=== PATIENT | male | born 1955 | race Caucasian/White ===

== ENCOUNTER 2019-04-04 12:17 | Emergency (ER) | payer OTHER ==
[~2019-04-04] VITALS: Ht 193 cm; Wt 140.6 kg
[~2019-04-04 12:17] MED LIST: IBUP200T76 PO
[2019-04-04 14:46] VITALS: BP 145/94
== END 2019-04-04 16:36 | disposition home or self-care (01) ==
LOC: ER 12:22
DX: S46.001A Unspecified injury of muscle(s) and tendon(s) of the rotator cuff of right shoulder, initial encounter (principal); G89.29 Other chronic pain; M54.9 Dorsalgia, unspecified; J45.909 Unspecified asthma, uncomplicated; K21.9 Gastro-esophageal reflux disease without esophagitis; Z79.1 Long term (current) use of non-steroidal anti-inflammatories (NSAID); W18.39XA Other fall on same level, initial encounter; Y93.89 Activity, other specified; Y92.89 Other specified places as the place of occurrence of the external cause; Y99.8 Other external cause status
CPT/HCPCS: 73030

== ENCOUNTER 2021-09-28 06:08 | Emergency (ER) | payer OTHER ==
[~2021-09-28] VITALS: Ht 193 cm; Wt 147.4 kg
[2021-09-28] MEDS ORDERED: KETOROLAC TROMETH 60MG/2ML VIAL IM ONE (08:15)
[2021-09-28 09:32] VITALS: BP 153/90
[2021-09-28] MEDS ORDERED: HYDR-4902 PO (10:02)
[2021-09-28] MEDS ORDERED: CYCL-837 PO (10:02)
[2021-09-28] MEDS ORDERED: NAP500T PO (10:02)
== END 2021-09-28 10:11 | disposition home or self-care (01) ==
LOC: ER 06:08
DX: G89.29 Other chronic pain (principal); M54.50 Low back pain, unspecified; M47.816 Spondylosis without myelopathy or radiculopathy, lumbar region; J45.909 Unspecified asthma, uncomplicated; K21.9 Gastro-esophageal reflux disease without esophagitis; Z86.718 Personal history of other venous thrombosis and embolism; Z79.899 Other long term (current) drug therapy; Z79.1 Long term (current) use of non-steroidal anti-inflammatories (NSAID)
CPT/HCPCS: 72131; 96372; 99284; J1885

== ENCOUNTER 2021-10-26 07:21 | Emergency (ER) | payer OTHER ==
[~2021-10-26] VITALS: Ht 193 cm; Wt 120.2 kg
[~2021-10-26 07:21] MED LIST changes: +CYCL-837 PO; +HYDR-4902 PO; +NAP500T PO
[2021-10-26 08:42] VITALS: BP 144/99
[2021-10-26] MEDS ORDERED: KETOROLAC TROMETH 60MG/2ML VIAL IM ONE (08:45)
[2021-10-26] MEDS ORDERED: PRED20TA2 PO (09:04)
== END 2021-10-26 09:08 | disposition home or self-care (01) ==
LOC: ER 07:21
DX: M47.816 Spondylosis without myelopathy or radiculopathy, lumbar region (principal); G89.29 Other chronic pain; M54.50 Low back pain, unspecified; K21.9 Gastro-esophageal reflux disease without esophagitis; J45.909 Unspecified asthma, uncomplicated; Z79.899 Other long term (current) drug therapy; Z79.1 Long term (current) use of non-steroidal anti-inflammatories (NSAID)
CPT/HCPCS: 96372; 99283; J1885

== ENCOUNTER 2022-06-21 08:11 | Emergency (ER) | payer OTHER ==
[~2022-06-21] VITALS: Ht 193 cm; Wt 145.2 kg
[~2022-06-21 08:11] MED LIST changes: +PRED20TA2 PO
[2022-06-21 08:20] VITALS: BP 135/90
[2022-06-21] MEDS ORDERED: KETOROLAC TROMETH 60MG/2ML VIAL IM ONE (09:15)
== END 2022-06-21 09:14 | disposition home or self-care (01) ==
LOC: ER 08:11
DX: G89.29 Other chronic pain (principal); M54.50 Low back pain, unspecified; M62.838 Other muscle spasm; J45.909 Unspecified asthma, uncomplicated; K21.9 Gastro-esophageal reflux disease without esophagitis; X50.1XXA Overexertion from prolonged static or awkward postures, initial encounter; Y93.01 Activity, walking, marching and hiking; Y92.89 Other specified places as the place of occurrence of the external cause; Y99.8 Other external cause status
CPT/HCPCS: 96372; 99283; J1885

== ENCOUNTER 2022-07-05 07:59 | Emergency (ER) | payer OTHER ==
[~2022-07-05] VITALS: Ht 193 cm; Wt 142.8 kg
[2022-07-05] MEDS ORDERED: KETOROLAC TROMETH 60MG/2ML VIAL IM ONE (08:45)
[2022-07-05 09:07] VITALS: BP 146/82
== END 2022-07-05 09:10 | disposition home or self-care (01) ==
LOC: ER 07:59
DX: M54.50 Low back pain, unspecified (principal); G89.29 Other chronic pain; J45.909 Unspecified asthma, uncomplicated; K21.9 Gastro-esophageal reflux disease without esophagitis; Z88.6 Allergy status to analgesic agent
CPT/HCPCS: 96372; 99283; J1885

== ENCOUNTER 2022-07-12 08:20 | Emergency (ER) | payer OTHER ==
[~2022-07-12] VITALS: Ht 193 cm; Wt 144.8 kg
[2022-07-12] MEDS ORDERED: KETOROLAC TROMETH 60MG/2ML VIAL IM ONE (09:00)
[2022-07-12 09:05] VITALS: BP 129/89
[2022-07-12] MEDS ORDERED: GABA300C10 PO (09:06)
== END 2022-07-12 09:25 | disposition home or self-care (01) ==
LOC: ER 08:20
DX: G89.29 Other chronic pain (principal); M54.50 Low back pain, unspecified; J45.909 Unspecified asthma, uncomplicated; Z88.6 Allergy status to analgesic agent
CPT/HCPCS: 96372; 99283; J1885

== ENCOUNTER 2022-07-19 07:48 | Emergency (ER) | payer OTHER ==
[~2022-07-19] VITALS: Ht 193 cm; Wt 143.2 kg
[~2022-07-19 07:48] MED LIST changes: +GABA300C10 PO
[2022-07-19] MEDS ORDERED: KETOROLAC TROMETH 60MG/2ML VIAL IM ONE (08:30)
[2022-07-19 08:31] VITALS: BP 144/85
== END 2022-07-19 08:57 | disposition home or self-care (01) ==
LOC: ER 07:48
DX: G89.29 Other chronic pain (principal); M54.50 Low back pain, unspecified; J45.909 Unspecified asthma, uncomplicated; Z79.899 Other long term (current) drug therapy; Z79.1 Long term (current) use of non-steroidal anti-inflammatories (NSAID)
CPT/HCPCS: 96372; 99283; J1885

== ENCOUNTER 2022-07-26 08:17 | Emergency (ER) | payer OTHER ==
[~2022-07-26] VITALS: Ht 193 cm; Wt 143.1 kg
[2022-07-26 08:31] VITALS: BP 137/87
[2022-07-26] MEDS ORDERED: KETOROLAC TROMETH 60MG/2ML VIAL IM ONE (08:45)
== END 2022-07-26 09:17 | disposition home or self-care (01) ==
LOC: ER 08:17
DX: G89.29 Other chronic pain (principal); M54.50 Low back pain, unspecified; J45.909 Unspecified asthma, uncomplicated
CPT/HCPCS: 96372; 99283; J1885

== ENCOUNTER 2022-08-16 08:03 | Emergency (ER) | payer OTHER ==
[~2022-08-16] VITALS: Ht 193 cm; Wt 144.6 kg
[2022-08-16 08:14] VITALS: BP 144/80
[2022-08-16] MEDS ORDERED: KETOROLAC TROMETH 60MG/2ML VIAL IM ONE (08:30)
== END 2022-08-16 08:53 | disposition home or self-care (01) ==
LOC: ER 08:03
DX: G89.29 Other chronic pain (principal); M54.50 Low back pain, unspecified; J45.909 Unspecified asthma, uncomplicated; Z88.6 Allergy status to analgesic agent
CPT/HCPCS: 96372; 99283; J1885

== ENCOUNTER 2022-10-02 08:19 | Emergency (ER) | payer OTHER ==
[~2022-10-02] VITALS: Ht 193 cm; Wt 145.5 kg
[~2022-10-02 08:19] MED LIST changes: +GABA-1250 PO; -GABA300C10 PO
[2022-10-02 08:49] VITALS: BP 136/89
[2022-10-02] MEDS ORDERED: KETOROLAC TROMETH 60MG/2ML VIAL IM ONE (09:15)
== END 2022-10-02 09:33 | disposition home or self-care (01) ==
LOC: ER 08:19
DX: G89.29 Other chronic pain (principal); M54.50 Low back pain, unspecified; J45.909 Unspecified asthma, uncomplicated; Z88.6 Allergy status to analgesic agent
CPT/HCPCS: 96372; 99283; J1885

== ENCOUNTER 2022-10-04 06:08 | Emergency (ER) | payer OTHER ==
[~2022-10-04] VITALS: Ht 188 cm; Wt 146.6 kg
[2022-10-04 06:15] VITALS: BP 141/81
[2022-10-04 07:13] LABS: Basophils # (auto) 0 10 ^3/uL (0-0.2); Basophils % (auto) 0.8 % (0.0-2.0); Eosinophils # (auto) 0.3 10 ^3/uL (0-0.8); Eosinophils % (auto) 5.6 % (0.0-7.0); Hematocrit 45.3 % (41.0-53.0); Hemoglobin 15.3 g/dL (13.5-17.5); Lymphocytes # (auto) 1.5 10 ^3/uL (0.4-5.4); Lymphocytes % (auto) 30.9 % (10.0-50.0); Mean Corpuscular Hemoglobin 31.8 pg (28.0-32.0); Mean Corpuscular Hgb Conc. 33.8 g/dL (32.0-36.0); Monocytes # (auto) 0.6 10 ^3/uL (0-1.3); Monocytes % (auto) 13.1 % (0.0-12.0); Neutrophils # (auto) 2.4 10 ^3/uL (1.6-8.6); Neutrophils % (auto) 49.6 % (37.0-80.0); Nucleated Red Blood Cells % 0.1 %; Red Blood Cells 4.82 10^6/uL (4.5-5.90); Red Cell Distribution Width 13.7 % (11.8-14.3); White Blood Cell 4.9 10^3/uL (4.4-10.8)
[2022-10-04 07:28] LABS: INR 0.96 (0.9-1.15)
[2022-10-04 07:52] LABS: Calcium 8.2 mg/dL (8.5-10.1); Potassium 4.3 mmol/L (3.5-5.1)
== END 2022-10-04 08:55 | disposition home or self-care (01) ==
LOC: ER 06:08
DX: R60.0 Localized edema (principal); I87.8 Other specified disorders of veins; I87.2 Venous insufficiency (chronic) (peripheral)
CPT/HCPCS: 36415; 80048; 83880; 84550; 85025; 85610; 93971

== ENCOUNTER 2022-10-25 08:06 | Emergency (ER) | payer OTHER ==
[~2022-10-25] VITALS: Ht 302.3 cm; Wt 144.8 kg
[2022-10-25 08:53] VITALS: BP 143/90
[2022-10-25] MEDS ORDERED: KETOROLAC TROMETH 60MG/2ML VIAL IM ONE (09:00)
[2022-10-25] MEDS ORDERED: AMOX500T86 PO ×2 (09:05)
== END 2022-10-25 09:16 | disposition home or self-care (01) ==
LOC: ER 08:06
DX: G89.29 Other chronic pain (principal); M54.59 Other low back pain; J45.909 Unspecified asthma, uncomplicated; Z79.899 Other long term (current) drug therapy
CPT/HCPCS: 96372; 99283; J1885

== ENCOUNTER 2022-11-24 09:51 | Emergency (ER) | payer OTHER ==
[~2022-11-24] VITALS: Ht 188 cm; Wt 150.0 kg
[2022-11-24 13:06] VITALS: BP 146/91; PULSE 101; RESP 20; TEMP 98.4; O2SAT 96
[2022-11-24] MEDS ORDERED: CYCL-837 PO (13:22)
[2022-11-24] MEDS ORDERED: KETOROLAC TROMETH 30 MG/ML 1ML VIAL IM ONE (13:30)
== END 2022-11-24 13:51 | disposition home or self-care (01) ==
LOC: ER 09:51
DX: G89.29 Other chronic pain (principal); M54.50 Low back pain, unspecified; J45.909 Unspecified asthma, uncomplicated
CPT/HCPCS: 96372; 99283; J1885

== ENCOUNTER 2022-11-29 07:50 | Inpatient (IN) | payer OTHER ==
[~2022-11-29] VITALS: Ht 188 cm; Wt 148.0 kg
[2022-11-29] VITALS (7 sets, daily range): BP systolic 139–146; BP diastolic 85–101; PULSE 72–85; RESP 18–19; TEMP 36.6; O2SAT 95–96
[2022-11-29 09:01] LABS: Basophils # (auto) 0.1 10 ^3/uL (0-0.2); Eosinophils # (auto) 0.3 10 ^3/uL (0-0.8); Eosinophils % (auto) 5.4 % (0.0-7.0); Hematocrit 43.8 % (41.0-53.0); Hemoglobin 15.1 g/dL (13.5-17.5); Lymphocytes # (auto) 1.6 10 ^3/uL (0.4-5.4); Lymphocytes % (auto) 29.8 % (10.0-50.0); Mean Corpuscular Hgb Conc. 34.5 g/dL (32.0-36.0); Mean Corpuscular Volume 92.8 fL (80.0-100.0); Monocytes # (auto) 0.6 10 ^3/uL (0-1.3); Monocytes % (auto) 12.4 % (0.0-12.0); Neutrophils # (auto) 2.7 10 ^3/uL (1.6-8.6); Neutrophils % (auto) 51.4 % (37.0-80.0); Nucleated Red Blood Cells % 0.1 %; Red Blood Cells 4.72 10^6/uL (4.5-5.90); Red Cell Distribution Width 13.8 % (11.8-14.3); White Blood Cell 5.2 10^3/uL (4.4-10.8)
[2022-11-29 09:15] LABS: Albumin 3.3 g/dL (3.4-5.0); Calcium 8.6 mg/dL (8.5-10.1); Potassium 4.3 mmol/L (3.5-5.1)
[2022-11-29 09:18] LABS: Bilirubin, Total 0.9 mg/dL (0.2-1.0)
[2022-11-29 09:43] LABS: INR 1.01 (0.9-1.15); Prothrombin Time 10.6 sec (9.3-11.8)
[2022-11-29] MEDS ORDERED: ENOXAPARIN SOD 150 MG/1 ML SYRINGE SC ONE (09:45)
[2022-11-29] MEDS ORDERED: TEMAZEPAM 15 MG CAP PO PRN (10:15)
[2022-11-29] MEDS ORDERED: HYDROcodone-ACET 5/325MG TAB PO PRN (10:15)
[2022-11-29] MEDS ORDERED: ONDANSETRON HCL 4 MG/2 ML VIAL IV PRN (10:15)
[2022-11-29] MEDS ORDERED: ACETAMINOPHEN 325 MG TAB PO PRN (10:15)
[2022-11-29] MEDS ORDERED: ACET-1881 PO (13:47)
[2022-11-29] MEDS ORDERED: RIV20T PO (13:47)
[2022-11-29] MEDS: ENOXAPARIN SOD 150 MG/1 ML SYRINGE SC SCH (21:13)
[2022-11-30] VITALS (7 sets, daily range): BP systolic 129–145; BP diastolic 74–91; PULSE 75–90; RESP 14–18; TEMP 97.7–98.8; O2SAT 94–96
[2022-11-30 06:29] LABS: INR 1.04 (0.9-1.15); Partial Thromboplastin Time 33.5 SEC (24.5-34.5); Prothrombin Time 10.9 sec (9.3-11.8)
[2022-11-30 08:28] LABS: Calcium 8.6 mg/dL (8.5-10.1); Potassium 4.4 mmol/L (3.5-5.1)
[2022-11-30 08:30] LABS: BUN/Creatinine Ratio 15.7 (10.0-20.0)
[2022-11-30] MEDS: ENOXAPARIN SOD 150 MG/1 ML SYRINGE SC SCH ×2 (09:16→21:30)
[2022-11-30] MEDS: PANTOPRAZOLE 40 MG TAB PO SCH (09:16)
[2022-11-30 12:51] LABS: Urine Bacteria NONE SEEN /hpf (None Seen); Urine Blood Negative /uL (Negative); Urine Clarity Clear (Clear); Urine Color Yellow (Yellow); Urine Protein, UAD Negative (Negative); Urine Specific Gravity 1.015 (1.001-1.035); Urine Urobilinogen Normal (Negative); Urine WBC <1 /hpf (0 - 3); Urine pH 7.5 (5.0-8.0)
[2022-11-30 13:02] LABS: Alcohol, Urine < 3.0 mg/dL (0-10); Amphetamine Screen, Urine NEGATIVE (NEGATIVE); Barbiturate Scree,Urine NEGATIVE (NEGATIVE); Benzodiazephine Screen, Urine NEGATIVE (NEGATIVE); Cannabinoid Screen, Urine NEGATIVE (NEGATIVE); Cocaine Screen, Urine NEGATIVE (NEGATIVE); Opiate Scree,Urine NEGATIVE (NEGATIVE); Phencyclidine Screen, Urine NEGATIVE (NEGATIVE)
[2022-11-30] MEDS: hydrALAZINE HCL 25 MG TAB PO SCH (21:30)
[2022-12-01 05:00] VITALS: BP 127/68; PULSE 73; RESP 17; TEMP 98.3; O2SAT 95
[2022-12-01] MEDS: hydrALAZINE HCL 25 MG TAB PO SCH ×2 (06:50→16:11)
[2022-12-01 08:36] VITALS: BP 150/91; PULSE 86; RESP 20; TEMP 97.5; O2SAT 96
[2022-12-01] MEDS: ENOXAPARIN SOD 150 MG/1 ML SYRINGE SC SCH (09:58)
[2022-12-01] MEDS: PANTOPRAZOLE 40 MG TAB PO SCH (09:59)
[2022-12-01 13:00] VITALS: BP 146/89; PULSE 85; RESP 21; TEMP 97.6; O2SAT 98
[2022-12-01] MEDS ORDERED: ENOXAPARIN SOD 150 MG/1 ML SYRINGE SC SCH (13:30)
== END 2022-12-01 16:40 | disposition home or self-care (01) | DRG 300 ==
LOC: ER 07:50 → OVERFLOW 10:15 → CENTRAL 11:30
PROVIDERS: ADMIT Nurse Practitioner; ATTEND Internal Medicine
DX: I82.412 Acute embolism and thrombosis of left femoral vein (principal); E44.0 Moderate protein-calorie malnutrition; Z68.41 Body mass index [BMI] 40.0-44.9, adult; E66.9 Obesity, unspecified; G89.29 Other chronic pain; Z96.652 Presence of left artificial knee joint; M54.50 Low back pain, unspecified; S80.12XA Contusion of left lower leg, initial encounter; W18.39XA Other fall on same level, initial encounter; J45.909 Unspecified asthma, uncomplicated; Z80.0 Family history of malignant neoplasm of digestive organs; Z83.3 Family history of diabetes mellitus; Z86.718 Personal history of other venous thrombosis and embolism; Z79.01 Long term (current) use of anticoagulants; Z71.3 Dietary counseling and surveillance; Y93.89 Activity, other specified; Y92.098 Other place in other non-institutional residence as the place of occurrence of the external cause; Y99.8 Other external cause status
CPT/HCPCS: 36415; 80048; 80053; 80307; 81001; 83605; 83880; 85025; 85610; 85730; 87040; 93971; 96372; G0378

== ENCOUNTER 2022-12-13 08:10 | Emergency (ER) | payer OTHER ==
[~2022-12-13] VITALS: Ht 188 cm; Wt 143.6 kg
[~2022-12-13 08:10] MED LIST changes: +ACET-1881 PO; -CYCL-837 PO; -GABA-1250 PO; -HYDR-4902 PO; -IBUP200T76 PO; -NAP500T PO; -PRED20TA2 PO; +RIV20T PO
[2022-12-13] MEDS ORDERED: KETOROLAC TROMETH 60MG/2ML VIAL IM ONE (09:00)
[2022-12-13 09:29] VITALS: BP 139/88; PULSE 89; RESP 18; O2SAT 96
== END 2022-12-13 09:32 | disposition home or self-care (01) ==
LOC: ER 08:10
DX: G89.29 Other chronic pain (principal); M54.50 Low back pain, unspecified; J45.909 Unspecified asthma, uncomplicated; Z79.899 Other long term (current) drug therapy
CPT/HCPCS: 96372; 99283; J1885

== ENCOUNTER 2023-01-31 07:59 | Emergency (ER) | payer OTHER ==
[~2023-01-31] VITALS: Ht 193 cm; Wt 143.4 kg
[2023-01-31 09:00] VITALS: BP 121/86; PULSE 93; RESP 18; O2SAT 93
[2023-01-31] MEDS ORDERED: KETOROLAC TROMETH 60MG/2ML VIAL IM ONE (09:15)
== END 2023-01-31 09:31 | disposition home or self-care (01) ==
LOC: ER 07:59
DX: G89.29 Other chronic pain (principal); M54.50 Low back pain, unspecified; J45.909 Unspecified asthma, uncomplicated; Z79.899 Other long term (current) drug therapy
CPT/HCPCS: 96372; 99283; J1885

== ENCOUNTER 2023-02-21 08:13 | Emergency (ER) | payer OTHER ==
[~2023-02-21] VITALS: Ht 193 cm; Wt 146.0 kg
[2023-02-21] MEDS ORDERED: KETOROLAC TROMETH 60MG/2ML VIAL IM ONE (09:00)
[2023-02-21 09:25] VITALS: BP 157/94; PULSE 76; RESP 18; TEMP 98.2; O2SAT 94
== END 2023-02-21 09:34 | disposition home or self-care (01) ==
LOC: ER 08:13
DX: G89.29 Other chronic pain (principal); M54.59 Other low back pain; J45.909 Unspecified asthma, uncomplicated
CPT/HCPCS: 96372; 99283; J1885